=== PATIENT | female | born 1960 | race African-American/Black ===

== ENCOUNTER 2016-09-14 12:39 | Inpatient (IN) | payer MEDICARE, BC ==
--- NOTE | ~2016-09-14 | DS ---
Discharge Summary [facility] [address] [place]. [address] NAME: REJI GÓMEZ : 64 STATUS : ADM IN PAT#: [id number] AGE: 55 ADM/REG DATE : 09/14/16 MR#: [id number] REPORT SERV DATE: 09/26/16 DICTATED BY: WILLIAN CLEMENT DATE: 09/26/16 REPORT STATUS : Draft TRANSCRIBED BY: MODLee DATE: 09/26/16 ADMISSION DATE: 09/14/2016 DISCHARGE DATE: 09/26/2016 PROCEDURES DONE: 1. 09/14/2016 chest x-ray: No radiographic evidence of acute disease. 2. 09/14/2016 x-ray, left foot: Findings surrounding the 1st MTP joint are consistent with ongoing gouty arthritis. 3. 09/16/2015 x-ray, right foot: Lucencies involving the base of the proximal phalanx of the right 1st digit and the distal aspect of the right foot 1st metatarsal suspicious for either osteomyelitis or changes secondary to gout. 4. 09/16/2015 MRI of lower extremity joint: Findings consistent with tophaceous gout. Most severe involvement in the distal 1st digit and along the lateral aspect of the patellar calcaneal articulation. There are multiple soft tissue tophi adjacent to the inflamed joint spaces. At this time, there appears to be sparing of the 2nd through 4th digits in Achilles tendon. 5. 09/18/2015 x-ray, right elbow: The Cam demonstrates no arterial occlusion, significant stenosis up to the right and left lower extremity. 6. 09/17/2016 venous ultrasound, bilateral lower extremity: No DVT in right or left lower extremity. 7. 09/18/2016 x-ray of left foot: Satisfactory postop left foot. 8. 09/21/2016 elbow, right: No evidence of traumatic injury in right elbow or significant degenerative changes. 9. 09/22/2016 chest x-ray: No evidence of acute cardiopulmonary disease. CONSULTS: Dr. Gutierrez for Renal, Dr. Olivier for Infectious Disease and Podiatry. REASON FOR ADMISSION: Pain and swelling of the left great toe. HISTORY OF HOSPITAL STAY: A 55-year-old, black female with past medical history of chronic kidney disease, stage 4; chronic anemia, on treatment trial called vadadustat; gout; psoriasis; presenting with pain and swelling on the left great toe. The patient was admitted for acute exacerbation of gout attack on the left foot. The patient was admitted for further evaluation. The patient underwent procedure on the left great toe to express the tophaceous gout. In addition, the patient also had a questionable osteomyelitis on the left joint requiring an MRI, which shows no osteomyelitis, just the patient's gout. Nonetheless, Infectious Disease was consulted. The patient was started on antibiotics due to the tophaceous gout. There was a question of MRSA infection. The patient was continuing on antibiotics on discharge. The patient will continue doxycycline 100 mg p.o. b.i.d. for 10 days total. Also, from a Renal standpoint, renal function slowly improving. The patient has been changed to prednisone 10 mg p.o. daily as well as Uloric 40 mg p.o. daily. The patient is doing much better with her gout once the Uloric and prednisone have been started. DISPOSITION: The patient is feeling fine. No complaints. ACTIVITIES: As tolerated. Discharge Summary [address] [address] NAME: REJI GÓMEZ : 64 STATUS : ADM IN [facility]#: [id number] AGE: 55 ADM/REG DATE : 09/14/16 MR#: [id number] REPORT SERV DATE: 09/26/16 DICTATED BY: WILLIAN CLEMENT DATE: 09/26/16 REPORT STATUS : Draft TRANSCRIBED BY: LUZ DATE: 09/26/16 DIET: Low-uric acid diet. INSTRUCTIONS UPON DISCHARGE: 1. The patient to follow up with Podiatry within one weeks' time. 2. The patient to follow up with Renal within one to two weeks' time. 3. The patient to follow up with Primary Care within one to two weeks' time. MEDICATION UPON DISCHARGE: 1. Amlodipine 10 mg p.o. daily. 2. Coreg 6.25 mg p.o. daily. 3. Doxycycline 100 mg p.o. daily. 4. Lasix 40 mg p.o. daily. 5. Uloric 40 mg p.o. daily. 6. Lyrica 75 mg p.o. b.i.d. 7. Sodium bicarb 1300 mg p.o. b.i.d. 8. Prednisone 10 mg p.o. daily. 9. Vadadustat 300 mg p.o. daily. DIAGNOSES UPON DISCHARGE: 1. Left great toe pain and swelling secondary to gout. 2. Elbow pain secondary to gout. 3. Chronic kidney disease, stage 4. 4. Hypertension. 5. History of psoriasis. FRANCOISE/LUZ Willian Clement MD / [id number] CC: MD Collette Lilly M.D.
--- NOTE | ~2016-09-14 | CN ---
Consultation Report [facility] [address] [place]. [address] NAME: REJI GÓMEZ : 64 STATUS : ADM IN PAT#: [id number] AGE: 55 ADM/REG DATE : 09/14/16 MR#: [id number] REPORT SERV DATE: 09/16/16 DICTATED BY: NIKKI OLIVIER DATE: 09/16/16 REPORT STATUS : Draft TRANSCRIBED BY: MODL DATE: 09/16/16 DATE OF CONSULTATION: 09/16/2016 REASON FOR CONSULTATION: Possible infection complicating severe gout. HISTORY OF PRESENT ILLNESS: This is a 55-year-old female with a past medical history notable for chronic kidney disease, followed by Dr. Garibay of Nephrology, along with chronic severe gout. The patient tells me that her gout was first diagnosed in 2005 when she had swelling of her knee and was seen by Dr. Sarkar of Rheumatology. She also at one point was followed by Dr. Walton of Rheumatology. Management of her gout has been complicated by her chronic kidney disease. She states that she has had chronic problems of multiple joints through the years. However, a couple of months ago, she developed an open draining wound of her left 1st metatarsophalangeal joint area with yellowish material and bloody material draining from it. The one set has been most severely involved with gout through the years. She also developed some skin problems recently involving her arms and at some point, was referred to Dr. He's office and saw one of his assistance and underwent a biopsy of her right elbow area on 08/19 with pathology showing psoriasiform epidermal hyperplasia. A diagnosis of psoriasis apparently was made. The patient states that the left foot is steadily worsened and she has had some low-grade fevers up to around 100.1. For all these reasons, she was seen in the emergency department on 09/14. She underwent x-rays of both feet along with an MRI scan of the left foot with results as outlined below and she has been evaluated by Dr. Tovar. She was placed on antibiotics with initially one dose of vancomycin with an ongoing therapy with Zosyn. A culture was obtained from drainage from the left great toe and has grown abundant MRSA. Blood cultures are negative. The patient denies previous infections related to her gout. The patient also notes a worsening changes of the skin of her left foot and ankle, much more so than the right foot. She states that she has been using topical Neosporin on both feet for many weeks. PAST MEDICAL HISTORY: In addition to the above is notable for cholecystectomy and C- sections. ALLERGIES: CLIFF INHIBITORS AND METRONIDAZOLE. PRESENT MEDICATIONS: Include Norvasc, Coreg, Zosyn, Lyrica, and prednisone 10 mg daily. She was on prednisone at that dose as an outpatient. SOCIAL HISTORY: The patient lives with her 29-year-old son. She is able to do a little bit of house work but has to rest frequently. Nonsmoker. Occasional alcohol consumption. FAMILY HISTORY: Notable for diabetes in her mother. REVIEW OF SYSTEMS: No nausea, vomiting, diarrhea, chest pain, shortness of breath. PHYSICAL EXAMINATION: Consultation Report [address] [place]. [address] NAME: REJI GÓMEZ : 64 STATUS : ADM IN [facility]#: [id number] AGE: 55 ADM/REG DATE : 09/14/16 MR#: [id number] REPORT SERV DATE: 09/16/16 DICTATED BY: NIKKI OLIVIER DATE: 09/16/16 REPORT STATUS : Draft TRANSCRIBED BY: LUZ DATE: 09/16/16 VITAL SIGNS: The patient weighs 77 kg. She is afebrile. Blood pressure 123/63, pulse 64, respiratory rate 14. GENERAL: She is in no acute distress. HEAD AND NECK: Exam shows a clear oral cavity. Supple neck. LUNGS: Clear to auscultation anteriorly. CARDIAC: Regular rate and rhythm without murmur, gallop, or rub. ABDOMEN: Soft and nontender. EXTREMITIES: The patient has chronic skin changes of gout involving her fingers and knees and big toes including multiple palpable tophi in her fingers. There is a significant swelling of the left knee greater than the right knee with mild associated warmth. The left 1st MPJ has an open wound over it medially with scant amount of drainage and surrounding soft tissue swelling and tenderness and mild warmth. The skin of the dorsum of the left foot and ankle is lichenified with some smaller areas of similar change on the right. Her upper extremities have erythematous papular rash particularly around the elbows. The patient has a peripheral IV without phlebitis. LABORATORY STUDIES: White blood cell count on admission 8.2, today 3.4; hemoglobin 7.7; platelets 82,000, they were 108,000 on admission. Creatinine is 2.71, it was 2.29 on admission and 1.1 back in 2010. Albumin 3.2. Liver function tests normal. Rheumatoid factor negative. SUZE 1:80. Sedimentation rate 108. Uric acid 10.3. MICROBIOLOGY STUDIES: Urinalysis: Trace leukocyte esterase, 2 white blood cells. Wound culture as mentioned. Blood cultures negative to date. IMAGING STUDIES: X-ray of the left foot is reviewed and is interpreted as showing findings consistent with gouty arthritis on the first MTP joint with soft tissue swelling and erosions. MRI of the left foot is interpreted as being consistent with tophaceous gout with most severe involvement being the distal 1st digit. IMPRESSION: It is not clear if the patient has secondary infection involving the severe gouty arthritis of her left 1st MPJ. The culture growing MRSA could just represent colonization of this wound that has developed and not deeper infection. However, she obviously is at risk for secondary infection here. The MRI though is without clear evidence of osteomyelitis. The patient also has recently diagnosed psoriasis. The changes of the skin of her left foot and ankle with lesser changes on the right could at least in part be secondary to a chronic reaction to the Neosporin use. PLAN: I discussed the situation with Dr. Tovar. He planned surgical therapy even if there is no infection here given that the 1st MPJ is really not a functional joint anymore. He plans to resect the distal 1st metatarsal and the proximal 1st phalanx and we will get deep cultures of bone and deeper soft tissue off antibiotics along with pathology specimens from bone to further evaluate for infection. We will therefore stop her antibiotics today with plans to begin vancomycin postoperatively. The patient should avoid Neosporin in the future. Consultation Report [place] [id number] [facility] [place]. [address] NAME: REJI GÓMEZ : 64 STATUS : ADM IN [facility]#: [id number] AGE: 55 ADM/REG DATE : 09/14/16 MR#: [id number] REPORT SERV DATE: 09/16/16 DICTATED BY: NIKKI OLIVIER DATE: 09/16/16 REPORT STATUS : Draft TRANSCRIBED BY: LUZ DATE: 09/16/16 /LUZ Nikki Olivier M.D. / [id number] CC: MD Collette Oconnell M.D. Dennis Bizzoco, D.P.M.
--- NOTE | ~2016-09-14 | CN ---
Consultation Report [facility] [address] [place]. [address] NAME: REJI SANDERS : 64 STATUS : ADM IN PAT#: [id number] AGE: 55 ADM/REG DATE : 09/14/16 MR#: [id number] REPORT SERV DATE: 09/19/16 DICTATED BY: BERNADINE ACE DATE: 09/18/16 REPORT STATUS : Draft TRANSCRIBED BY: MODL DATE: 09/18/16 DATE OF CONSULTATION: 09/18/2016 REQUESTING: Luis Fernando Alberto MD REASON FOR CONSULT: Chronic kidney disease. HPI: Ms. Sanders is a very pleasant 55-year-old female, who was originally met by our group at [facility] in September 2015. At that time, she presented with acute kidney injury and creatinine of 3.2. She has a significant past medical history of nonalcoholic steatohepatitis, hypertension, and severe gout. She has previously been followed quite extensively by Rheumatology for her gout. Unfortunately, records are not available at the time of today's dictation. She underwent renal biopsy at that time for renal insufficiency and microscopic hematuria. The biopsy showed 30-40% interstitial fibrosis and unfortunately was a poor sample with mostly medulla. There were no evidence of crescents or active glomerulonephritis. She was sent home at that time with a creatinine of 2.1. In followup in December of 2015, creatinine was 4.5. She has a left upper arm AV fistula that was placed around that time. She has never been on dialysis. In February 2016, creatinine was 3.8, April 2016 creatinine 3.0, and July 2016 creatinine was 2.4. Most recently, in the office on 08/05/2016, creatinine was 2.0. She was admitted here on 09/14/2016 with severe gout in her left foot. MRI showed tophaceous gout and she is postop day 0 left foot lesion removal. She has been seen by ID for superimposed infection. Ultrasound has shown no DVT and chest x-ray shows no active process. Creatinine today is 2.2. PAST MEDICAL HISTORY: 1. Chronic kidney disease as per HPI. 2. Gout. 3. Hypertension. 4. Nondiagnostic renal biopsy in September 2015. 5. MCCOY. MEDICATIONS: Norvasc 5 mg daily, Coreg, Pepcid, prednisone, Lyrica. FAMILY HISTORY: No ESRD. SOCIAL HISTORY: She is . Disabled, lives in [place]. REVIEW OF SYSTEMS: Please see HPI. PHYSICAL EXAMINATION: VITAL SIGNS: Temperature 97.3, pulse 92, respirations 14, blood pressure 157/77, and 99% saturation on room air. Consultation Report [facility] [address] [place]. [address] NAME: REJI SANDERS : 64 STATUS : ADM IN PAT#: [id number] AGE: 55 ADM/REG DATE : 09/14/16 MR#: [id number] REPORT SERV DATE: 09/19/16 DICTATED BY: BERNADINE ACE DATE: 09/18/16 REPORT STATUS : Draft TRANSCRIBED BY: LUZ DATE: 09/18/16 GENERAL: A pleasant middle-aged female, awake, alert, oriented, cooperative with the exam. She is in no distress. Good historian. HEENT: Sclerae without icterus. Conjunctivae not injected. Oropharynx is clear. No JVD. LUNGS: Bilateral rhonchi without dyspnea. HEART: Regular rate and rhythm. No rub. ABDOMEN: Soft, nontender, nondistended. Bowel sounds present throughout without rebound or guarding. EXTREMITIES: 1+ bilateral lower extremity edema. Left foot heavily bandaged. Clean, dry, and intact. She has bilateral lower extremity rash with previous biopsy consistent with psoriasis. NEURO: Exam is nonfocal. No Salinas catheter is in place. PSYCH: Mood and affect are appropriate. LABORATORY DATA: Sodium 143, potassium 4.4, bicarb 20, BUN 32, creatinine 2.2. Calcium 6.9, uric acid 10.3, albumin 3.1. LFTs normal. Calcium ionized 3.44, GFR 28 mL/minute. Sedimentation rate 111. SUZE positive at 1 to 80 and speckled. White count 4.2000 with 3% eosinophilia, hemoglobin 8.6, platelets 89,000. Urinalysis shows trace blood and 1+ protein with a urine microalbumin creatinine ratio of 94 mcg/mg. ASSESSMENT/PLAN: Ms. Sanders has chronic kidney disease stage 4, anemia, thrombocytopenia, leukopenia, non-anion gap metabolic acidosis, hypocalcemia, hypertension, gout, hypoalbuminemia, psoriasis, and previous nondiagnostic renal biopsy in September 2015. Her other medical history is as outlined above. Her renal function is very stable if not improved from previous according to available records. She has trace blood and 1+ protein on urinalysis. She has a left upper arm fistula in place but has never been on dialysis. The reason for her renal disease is unclear at this time. Apparently, the renal biopsy was nondiagnostic in September 2015. I do not have a copy of the pathology report at the time of today's dictation. The question would be whether or not re-biopsy is indicated at this time. Her elevated sedimentation rate is likely related to her autoimmune processes. We could make an argument that renal function is very stable from previous, and therefore renal biopsy would be high risk with low platelets and low reward. No CLIFF inhibitor or ARB. Protect the left arm. Replace IV calcium and oral bicarb. 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 We will check some serologies and follow closely with you. If renal function were to deteriorate, we would consider inpatient renal biopsy next week versus outpatient followup with Nephrology in the future with Dr. Garibay. BILL/LUZ Bernadine Ace M.D. Consultation Report [address] [address] NAME: REJI SANDERS : 64 STATUS : ADM IN PAT#: [id number] AGE: 55 ADM/REG DATE : 09/14/16 MR#: [id number] REPORT SERV DATE: 09/19/16 DICTATED BY: BERNADINE ACE DATE: 09/18/16 REPORT STATUS : Draft TRANSCRIBED BY: MODL DATE: 09/18/16 / [id number] CC: Franco Garibay M.D.
--- NOTE | ~2016-09-14 | OP ---
Record Of Operation [facility] [address] [place]. [address] NAME: REJI GÓMEZ : 64 STATUS : DIS IN PAT#: [id number] AGE: 55 ADM/REG DATE : 09/14/16 MR#: [id number] REPORT SERV DATE: 10/26/16 DICTATED BY: TEENA GARCIA DATE: 10/23/16 REPORT STATUS : Draft TRANSCRIBED BY: MODLee DATE: 10/23/16 DATE OF PROCEDURE: 09/18/2016 PREOPERATIVE DIAGNOSES: 1. Extensive tophaceous gout, left first metatarsophalangeal joint. 2. Stage 5 ulceration, left first metatarsophalangeal joint. 3. Severe hallux abductovalgus, left first metatarsophalangeal joint. 4. Dislocated left first metatarsophalangeal joint. 5. Cellulitis left first metatarsophalangeal joint and foot. 6. Antalgic gait, inability to wear shoes and walk with comfort. POSTOPERATIVE DIAGNOSES: 1. Extensive tophaceous gout, left first metatarsophalangeal joint. 2. Stage 5 ulceration, left first metatarsophalangeal joint. 3. Severe hallux abductovalgus, left first metatarsophalangeal joint. 4. Dislocated left first metatarsophalangeal joint. 5. Cellulitis left first metatarsophalangeal joint and foot. 6. Antalgic gait, inability to wear shoes and walk with comfort. PROCEDURE PERFORMED: 1. Debulking of gouty tophi, left first metatarsophalangeal joint. 2. Biopsy, first metatarsal head, proximal phalanx. 3. Reduction of the dislocation, left first metatarsophalangeal joint. 4. Reduction of hallux abductovalgus deformity. 5. Decompression of sterile abscess left first metatarsophalangeal joint. 6. Reduction of stage 5 ulceration, left first metatarsophalangeal joint. COMPLICATIONS: None. ESTIMATED BLOOD LOSS: Less than 5 mL. TOURNIQUET TIME: Approximately 2 hours at 250 mmHg. ANESTHESIA: General with a supplementation of local anesthetic at the level of the ankle, 0.5% plain Marcaine, 2% plain Xylocaine in an ankle bracelet fashion, 20 mL total volume. SURGEON: Stuart MejiaPMayur DESCRIPTION OF PROCEDURE: The patient was brought to the operating room on the morning of 09/18/2016 in the satisfactory condition and general anesthesia was initiated. The left ankle was localized as mentioned above. The left foot was prepped and draped in the usual sterile manner. The left foot was exsanguinated of blood and the ankle tourniquet was elevated to 250 mmHg. A dorsomedial incision was made over the left foot from the level of the diaphysis of the first metatarsal to the diaphysis of the proximal phalanx. The incision was deepened to reveal an extensive tophaceous gout in layer after layer. At each layer was approached, the gouty tophi was curetted from the wound Record Of [address] [place]. [address] NAME: REJI GÓMEZ : 64 STATUS : DIS IN PAT#: [id number] AGE: 55 ADM/REG DATE : 09/14/16 MR#: [id number] REPORT SERV DATE: 10/26/16 DICTATED BY: TEENA GARCIA DATE: 10/23/16 REPORT STATUS : Draft TRANSCRIBED BY: MODL DATE: 10/23/16 maintaining the extensively scarred and shredded first metatarsophalangeal joint. The hypertrophy plus ulcerative changes were significant. At each layer, consecutive layer of gouty tophi and sclerotic tissue was defined and then the gouty tophi was eradicated and evacuated the capsule appeared to be completely disrupted at the level of the first metatarsophalangeal joint. The margins were freed up in a semi lenticular fashion on the frontal plane from dorsal to plantar. The patient's periosteum was finally identified and reflected using a [place] elevator. Technique circumferentially at the base of the proximal phalanx and circumferentially at the head of the first metatarsal. The remaining shards of bone in this area intraoperative cultures were obtained as where a collected specimen of bone at this site and sent as per pathology. Using a Jamshidi needle biopsy was obtained from the first metatarsal head and the proximal phalanx and sent out for pathology. The area was flushed with copious amounts of normal saline employing multiple bags x3 3-liter bags of normal saline using pulse lavage. This technique finally eradicate all of the gouty tophi crystals from the catheter site dorsally, medially, plantarly, and laterally of the first metatarsal head and proximal phalanx. Multiple sections of bone were obtained using a [employer] Fan Machine oscillating saw as condylectomies and partial ostectomies were performed at the level of the first metatarsal head. Periarticular surfaces of both the first metatarsal head and proximal phalanx. These were all sent out for pathology. Once all the digitis material was removed, there was an inability to reduce the subluxation dislocation of the first metatarsophalangeal joint laterally using a mixture of [place] elevators and Yepez elevators. Once this was achieved without incident then the patient had the ability to have a complete reduction of the first toe from its severely dorsiflexed, severely valgusly rotated, and severely adducted to the midline of the left foot, and abducted to the midline of the body. Using manual reduction technique and capsulorrhaphy technique, the medial capsule was reapposed after a Fournier feeding tube was applied into the biopsy site in the proximal phalanx to ensure proper drainage. This was passed through the great toe out the lateral side into the first web space. Sutured in place with 4-0 Prolene x2. The joint capsule was reapposed on the frontal plane using 0 Vicryl simple interrupted suture. The linear periosteotomy, capsulotomy was reapposed using 3-0 Vicryl simple continuous suture. Subcutaneous tissue was closed using 2-0 Vicryl sutures and the skin was closed using a combination of horizontal mattress sutures 2-0 and 3 0 Prolene simple interrupted sutures. A Betadine Telfa dry compression dressing was applied to the left foot. The tourniquet was released. The patient tolerated the procedures well and went to the recovery room in a satisfactory condition. DB/MODL Stuart MejiaPMayur / [id number] CC: MD Collette Lilly M.D.
--- NOTE | ~2016-09-14 | HP ---
History And Physical [place] [id number] [facility] [place]. [address] NAME: REJI GÓMEZ : 64 STATUS : ADM IN PAT#: [id number] AGE: 55 ADM/REG DATE : 09/14/16 MR#: [id number] REPORT SERV DATE: 09/14/16 DICTATED BY: PARISA LEHMAN DATE: 09/14/16 REPORT STATUS : Draft TRANSCRIBED BY: MODL DATE: 09/14/16 DATE OF ADMISSION: 09/14/2016 CHIEF COMPLAINT: Pain and swelling in her left great toe. HISTORY OF PRESENT ILLNESS: The patient is a 55-year-old female. She has a past medical history significant for chronic kidney disease and she sees Nephrology associate. She has a history of chronic anemia which she is currently under treatment with study drug called vadadustat. She has a past history of gout. She has a recent diagnosis of psoriasis by her auto parts manager, Dr. He after a biopsy was done. She presents today with a lesion in her left great toe. The patient states that she has had gout in that joint before. She states that she noticed some pain, swelling, and a blister up here. She has not received previous antibiotic therapy for it. She was apparently at Dr. He's office where culture was done and she states they sent her here for evaluation and treatment. She states she has had some subjective fevers at home with chills and had some low-grade fevers documented to low 100s. She also notices over the past several days. She has had itching. She states she started breaking out with a rash on her arms. She wondered if it might be new due to her new study drug for the anemia. Although she has been on that several weeks. She is being evaluated and admitted today for further treatment of her wound. PAST MEDICAL HISTORY: As covered above. PAST SURGICAL HISTORY: She has had x3, cholecystectomy. She has had previous surgery to her toe, and she has had a mole removed. CURRENT MEDICATIONS: Coreg 3.125 b.i.d., prednisone 10, Lyrica 75 b.i.d., vadadustat 300 with lunch. ALLERGIES: CLIFF INHIBITORS AND FLAGYL. FAMILY HISTORY: Father was killed in an MVA. Mother had diabetic coma. SOCIAL HISTORY: She is not a smoker. Social drinker. REVIEW OF SYSTEMS: HEENT: No sore throat. CARDIOVASCULAR: No chest pain or palpitations. PULMONARY: No shortness of breath or cough. GI: No nausea or vomiting. : No dysuria, frequency, urgency. NEUROMUSCULOSKELETAL: She complains of pain in the toe and other changes as noted in the HPI. Otherwise, 14-point review of systems is negative. PHYSICAL EXAMINATION: History And Physical [address] [address] NAME: REJI GÓMEZ : 64 STATUS : ADM IN [facility]#: [id number] AGE: 55 ADM/REG DATE : 09/14/16 MR#: [id number] REPORT SERV DATE: 09/14/16 DICTATED BY: PARISA LHEMAN DATE: 09/14/16 REPORT STATUS : Draft TRANSCRIBED BY: LUZ DATE: 09/14/16 VITAL SIGNS: BP 172/97, repeated here 167/83; pulse 100; temperature 98.1; saturation 92%, respirations 18. GENERAL: She is awake, alert, oriented, in no acute distress. HEENT: Normocephalic, atraumatic. Sclerae nonicteric. NECK: Supple. HEART: Tachycardic and regular. LUNGS: Clear to auscultation. ABDOMEN: Nontender, nondistended. EXTREMITIES: She has chronic skin changes dependent. She states these have been present for some time. The left toe has a desquamated area on the medial portion. She has what looks like a lot of chronic gouty changes to the toe. There is no active drainage out the lesion at present. SKIN: Besides the lower extremity, she has a palpable reddish rash on the forearms. There was just a few small areas scattered isolated lesions on her stomach and back. She states they have been present for the past several days, but worse today. LABORATORY DATA: Sodium 142, potassium 4.9, chloride 110, CO2 of 19, BUN and creatinine 29 and 2.29 with a glucose of 91. White count is 8.2, H and H 8.7 and 27.6, platelets are 108. Wound cultures are pending. Chest x-ray is negative. X-ray of the foot, no foreign body, question gouty arthritis. ASSESSMENT: 55-year-old female with history of renal insufficiency, chronic anemia and gout, presenting with increased pain, swelling and lesion on the great toe. Rule out cellulitis with now associated rash, cause indeterminate. PLAN: 1. The patient has been admitted. 2. IV fluids, bicarb. 3. IV antibiotics. 4. Monitor blood counts. 5. Podiatry consult for the toe. Further recommendations pending records from Dr. He and her PCP. JACOBY/LUZ Parisa Lehman M.D. / [id number] CC: Michael Bird M.D.
[~2016-09-14 12:39] MED LIST: COLCRYS0.6 MG PO; FISH OIL PO; FISH-EPA1000 MG PO; LORTAB 5 PO; MICARDIS H80 MG/25 M PO; MICARDIS HC1 PO; MULTIPLE VIT PO; OMEGA 3550 MG PO; PLAQ200B PO; ULORIC; VITAMIN C500 M3 PO; VITAMIN D PO; [UNRECOGNIZED DRUG - OTHER] PO
[2016-09-14 15:13] LABS: BASOPHILS 0.2 %; BASOPHILS ABSOLUTE 0.02 10/3/uL (0.0-0.16); EOSINOPHILS 2.7 %; EOSINOPHILS ABSOLUTE 0.22 10/3/uL (0.0-0.53); ER CBC TAT 0 Hrs 00 Mins; IMMATURE GRANULOCYTES 0.1 %; IMMATURE GRANULOCYTES ABSOLUTE 0.01 10/3/uL (0.0-0.11); LYMPHOCYTES 9.7 %; LYMPHOCYTES ABSOLUTE 0.79 10/3/uL (0.67-4.30); MEAN CORPUS HGB CONC 31.5 g/dL (32.0-36.0); MEAN CORPUSCULAR HEMOGLOB 32.6 pg (26.0-34.0); MEAN CORPUSCULAR VOLUME 103.4 fL (80-100); MEAN PLATELET VOLUME 11.4 fL (9.2-13.0); MONOCYTES 4.7 %; MONOCYTES ABSOLUTE 0.38 10/3/uL (0.21-1.20); NEUTROPHILS 82.6 %; NEUTROPHILS ABSOLUTE 6.73 10/3/uL (2.02-8.40); RBC DISTRIBUTION WIDTH 16.7 % (12.0-16.0); WHITE BLOOD CELLS 8.2 10/3/uL (4.5-10.5)
[2016-09-14 15:14] LABS: HEMATOCRIT 27.6 % (36.0-48.0); HEMOGLOBIN 8.7 g/dL (12.0-16.0); MANUAL DIFF NO %; PLATELET COUNT 108 10/3/uL (150-400); RED CELL COUNT 2.67 10/6/uL (4.0-5.6)
[2016-09-14 15:26] LABS: A/G RATIO 0.6 (0.7-1.9); ALBUMIN 3.7 G/DL (3.5-5.0); ALKALINE PHOSPHATASE 128 U/L (45-117); BUN (BLOOD UREA NITROGEN) 29 MG/DL (6-23); CALCIUM, SERUM 8.8 MG/DL (8.5-10.4); CHLORIDE, SERUM 110 MMOL/L (96-112); CO2 (CARBON DIOXIDE) 19 MMOL/L (24-34); CREATININE 2.29 MG/DL (0.55-1.02); GFR AFRICAN AMERICAN 27 ML/MIN (>=60); GFR NON AFRICAN AMERICAN 24 ML/MIN (>=60); GLOBULIN 5.7 G/DL (2.5-4.1); GLUCOSE, SERUM 91 MG/DL (60-99); POTASSIUM, SERUM 4.9 MMOL/L (3.5-5.3); SGOT(AST) 32 U/L (5-40); SGPT(ALT) 17 U/L (5-65); SODIUM, SERUM 142 MMOL/L (135-148); TOTAL BILIRUBIN 0.9 MG/DL (0-1.2); TOTAL PROTEIN 9.4 G/DL (6.0-8.5)
[2016-09-14] MEDS ORDERED: P10 PO (17:46)
[2016-09-14] MEDS ORDERED: COREG3 PO (17:46)
[2016-09-14] MEDS ORDERED: LYRICA75 PO (17:47)
[2016-09-14] MEDS ORDERED: VADADUSTAT PO (17:48)
[2016-09-15 07:21] LABS: ASCORBIC ACID (UR NOT ORDER) NEG (NEG); BILIRUBIN, URINE NEGATIVE (NEG); KETONE, URINE NEGATIVE (NEG); LEUKOCYTE ESTERASE(NOT OR TRACE (NEG); WBC (NOT ORDERED) (RFLEX) 2 (0-5)
[2016-09-15 14:59] LABS: RHEUMATOID FACTOR QUANT < 10 IU/ML (0-15)
[2016-09-16 06:31] LABS: BASOPHILS 0.3 %; BASOPHILS ABSOLUTE 0.01 10/3/uL (0.0-0.16); EOSINOPHILS 3.8 %; EOSINOPHILS ABSOLUTE 0.13 10/3/uL (0.0-0.53); HEMATOCRIT 23.4 % (36.0-48.0); HEMOGLOBIN 7.7 g/dL (12.0-16.0); IMMATURE GRANULOCYTES 0.3 %; IMMATURE GRANULOCYTES ABSOLUTE 0.01 10/3/uL (0.0-0.11); LYMPHOCYTES 28.7 %; LYMPHOCYTES ABSOLUTE 0.98 10/3/uL (0.67-4.30); MANUAL DIFF NO %; MEAN CORPUS HGB CONC 32.9 g/dL (32.0-36.0); MEAN CORPUSCULAR HEMOGLOB 33.2 pg (26.0-34.0); MEAN CORPUSCULAR VOLUME 100.9 fL (80-100); MEAN PLATELET VOLUME 10.8 fL (9.2-13.0); MONOCYTES 6.5 %; MONOCYTES ABSOLUTE 0.22 10/3/uL (0.21-1.20); NEUTROPHILS 60.4 %; NEUTROPHILS ABSOLUTE 2.06 10/3/uL (2.02-8.40); PLATELET COUNT 82 10/3/uL (150-400); RBC DISTRIBUTION WIDTH 16.6 % (12.0-16.0); RED CELL COUNT 2.32 10/6/uL (4.0-5.6); WHITE BLOOD CELLS 3.4 10/3/uL (4.5-10.5)
[2016-09-16 06:42] LABS: A/G RATIO 0.7 (0.7-1.9); ALBUMIN 3.2 G/DL (3.5-5.0); CHLORIDE, SERUM 107 MMOL/L (96-112); CREATININE 2.71 MG/DL (0.55-1.02); GFR AFRICAN AMERICAN 22 ML/MIN (>=60); GFR NON AFRICAN AMERICAN 19 ML/MIN (>=60); GLOBULIN 4.8 G/DL (2.5-4.1); GLUCOSE, SERUM 99 MG/DL (60-99); POTASSIUM, SERUM 4.5 MMOL/L (3.5-5.3); SGOT(AST) 19 U/L (5-40); SGPT(ALT) 14 U/L (5-65); SODIUM, SERUM 140 MMOL/L (135-148)
[2016-09-16 06:44] LABS: ALKALINE PHOSPHATASE 83 U/L (45-117); BUN (BLOOD UREA NITROGEN) 35 MG/DL (6-23); CALCIUM, SERUM 7.7 MG/DL (8.5-10.4); CO2 (CARBON DIOXIDE) 23 MMOL/L (24-34); TOTAL BILIRUBIN 0.4 MG/DL (0-1.2)
[2016-09-16 10:57] LABS: 2ND TITER PATTERN HOMOGENEOUS; ANA PATTERN SPECKLED
[2016-09-16 16:57] LABS: INFLUENZA A SCREEN NEGATIVE (NEGATIVE); INFLUENZA B SCREEN NEGATIVE (NEGATIVE)
[2016-09-16 20:48] LABS: CREATININE (RANDOM URINE) 33.7 MG/DL; MICROALBUMIN, RANDOM URINE 3.2 MG/DL
[2016-09-17 05:55] LABS: BASOPHILS 0.3 %; BASOPHILS ABSOLUTE 0.01 10/3/uL (0.0-0.16); EOSINOPHILS 2.4 %; EOSINOPHILS ABSOLUTE 0.09 10/3/uL (0.0-0.53); HEMATOCRIT 21.3 % (36.0-48.0); IMMATURE GRANULOCYTES 0.3 %; IMMATURE GRANULOCYTES ABSOLUTE 0.01 10/3/uL (0.0-0.11); LYMPHOCYTES 29.4 %; LYMPHOCYTES ABSOLUTE 1.09 10/3/uL (0.67-4.30); MEAN CORPUS HGB CONC 32.4 g/dL (32.0-36.0); MEAN CORPUSCULAR HEMOGLOB 33.5 pg (26.0-34.0); MEAN CORPUSCULAR VOLUME 103.4 fL (80-100); MEAN PLATELET VOLUME 11.6 fL (9.2-13.0); MONOCYTES 6.5 %; MONOCYTES ABSOLUTE 0.24 10/3/uL (0.21-1.20); NEUTROPHILS 61.1 %; NEUTROPHILS ABSOLUTE 2.27 10/3/uL (2.02-8.40); PLATELET COUNT 86 10/3/uL (150-400); RED CELL COUNT 2.06 10/6/uL (4.0-5.6); WHITE BLOOD CELLS 3.7 10/3/uL (4.5-10.5)
[2016-09-17 06:03] LABS: HEMOGLOBIN 6.9 g/dL (12.0-16.0); MANUAL DIFF NO %
[2016-09-17 06:17] LABS: A/G RATIO 0.7 (0.7-1.9); BUN (BLOOD UREA NITROGEN) 36 MG/DL (6-23); CALCIUM, SERUM 7.2 MG/DL (8.5-10.4); CHLORIDE, SERUM 110 MMOL/L (96-112); CO2 (CARBON DIOXIDE) 20 MMOL/L (24-34); CREATININE 2.33 MG/DL (0.55-1.02); GFR AFRICAN AMERICAN 27 ML/MIN (>=60); GFR NON AFRICAN AMERICAN 23 ML/MIN (>=60); GLOBULIN 4.5 G/DL (2.5-4.1); GLUCOSE, SERUM 86 MG/DL (60-99); POTASSIUM, SERUM 4.3 MMOL/L (3.5-5.3); SGOT(AST) 20 U/L (5-40); SGPT(ALT) 14 U/L (5-65); SODIUM, SERUM 143 MMOL/L (135-148); TOTAL BILIRUBIN 0.2 MG/DL (0-1.2); TOTAL PROTEIN 7.5 G/DL (6.0-8.5)
[2016-09-17 06:19] LABS: ALKALINE PHOSPHATASE 69 U/L (45-117)
[2016-09-17 13:54] LABS: HEMATOCRIT 28.3 % (36.0-48.0); HEMOGLOBIN 8.6 g/dL (12.0-16.0)
[2016-09-18 05:58] LABS: BASOPHILS 0 %; EOSINOPHILS 3.3 %; EOSINOPHILS ABSOLUTE 0.14 10/3/uL (0.0-0.53); HEMATOCRIT 27.5 % (36.0-48.0); HEMOGLOBIN 8.6 g/dL (12.0-16.0); IMMATURE GRANULOCYTES 0.7 %; IMMATURE GRANULOCYTES ABSOLUTE 0.03 10/3/uL (0.0-0.11); LYMPHOCYTES 28.5 %; LYMPHOCYTES ABSOLUTE 1.21 10/3/uL (0.67-4.30); MEAN CORPUS HGB CONC 31.3 g/dL (32.0-36.0); MEAN CORPUSCULAR HEMOGLOB 31.4 pg (26.0-34.0); MEAN CORPUSCULAR VOLUME 100.4 fL (80-100); MEAN PLATELET VOLUME 11.3 fL (9.2-13.0); MONOCYTES 9.4 %; NEUTROPHILS 58.1 %; NEUTROPHILS ABSOLUTE 2.46 10/3/uL (2.02-8.40); PLATELET COUNT 89 10/3/uL (150-400); RBC DISTRIBUTION WIDTH 19.8 % (12.0-16.0); WHITE BLOOD CELLS 4.2 10/3/uL (4.5-10.5)
[2016-09-18 06:00] LABS: MANUAL DIFF NO %; RED CELL COUNT 2.74 10/6/uL (4.0-5.6)
[2016-09-18 06:24] LABS: A/G RATIO 0.7 (0.7-1.9); ALBUMIN 3.1 G/DL (3.5-5.0); ALKALINE PHOSPHATASE 71 U/L (45-117); CHLORIDE, SERUM 112 MMOL/L (96-112); CO2 (CARBON DIOXIDE) 20 MMOL/L (24-34); CREATININE 2.22 MG/DL (0.55-1.02); GFR AFRICAN AMERICAN 28 ML/MIN (>=60); GFR NON AFRICAN AMERICAN 25 ML/MIN (>=60); GLOBULIN 4.6 G/DL (2.5-4.1); GLUCOSE, SERUM 83 MG/DL (60-99); POTASSIUM, SERUM 4.4 MMOL/L (3.5-5.3); SGOT(AST) 25 U/L (5-40); SGPT(ALT) 16 U/L (5-65); SODIUM, SERUM 143 MMOL/L (135-148); TOTAL BILIRUBIN 0.5 MG/DL (0-1.2); TOTAL PROTEIN 7.7 G/DL (6.0-8.5)
[2016-09-18 06:28] LABS: BUN (BLOOD UREA NITROGEN) 32 MG/DL (6-23)
[2016-09-18 06:29] LABS: CALCIUM, SERUM 6.9 MG/DL (8.5-10.4)
[2016-09-19 08:46] LABS: BASOPHILS 0.2 %; BASOPHILS ABSOLUTE 0.01 10/3/uL (0.0-0.16); EOSINOPHILS 1.9 %; EOSINOPHILS ABSOLUTE 0.11 10/3/uL (0.0-0.53); HEMATOCRIT 28.2 % (36.0-48.0); HEMOGLOBIN 8.8 g/dL (12.0-16.0); IMMATURE GRANULOCYTES 0.7 %; IMMATURE GRANULOCYTES ABSOLUTE 0.04 10/3/uL (0.0-0.11); LYMPHOCYTES 23.1 %; LYMPHOCYTES ABSOLUTE 1.31 10/3/uL (0.67-4.30); MEAN CORPUS HGB CONC 31.2 g/dL (32.0-36.0); MEAN CORPUSCULAR HEMOGLOB 31.7 pg (26.0-34.0); MEAN CORPUSCULAR VOLUME 101.4 fL (80-100); MEAN PLATELET VOLUME 11.7 fL (9.2-13.0); MONOCYTES 10.6 %; NEUTROPHILS 63.5 %; PLATELET COUNT 104 10/3/uL (150-400); RBC DISTRIBUTION WIDTH 19.7 % (12.0-16.0); RED CELL COUNT 2.78 10/6/uL (4.0-5.6); WHITE BLOOD CELLS 5.7 10/3/uL (4.5-10.5)
[2016-09-19 08:47] LABS: MANUAL DIFF NO %
[2016-09-19 08:58] LABS: A/G RATIO 0.7 (0.7-1.9); ALBUMIN 3.4 G/DL (3.5-5.0); ALKALINE PHOSPHATASE 74 U/L (45-117); BUN (BLOOD UREA NITROGEN) 29 MG/DL (6-23); CALCIUM, SERUM 7.5 MG/DL (8.5-10.4); CHLORIDE, SERUM 108 MMOL/L (96-112); CO2 (CARBON DIOXIDE) 21 MMOL/L (24-34); CREATININE 2.43 MG/DL (0.55-1.02); GFR AFRICAN AMERICAN 25 ML/MIN (>=60); GFR NON AFRICAN AMERICAN 22 ML/MIN (>=60); GLUCOSE, SERUM 96 MG/DL (60-99); POTASSIUM, SERUM 4.3 MMOL/L (3.5-5.3); SGOT(AST) 24 U/L (5-40); SGPT(ALT) 16 U/L (5-65); SODIUM, SERUM 142 MMOL/L (135-148); TOTAL BILIRUBIN 0.2 MG/DL (0-1.2); TOTAL PROTEIN 8.4 G/DL (6.0-8.5)
[2016-09-20 06:30] LABS: BASOPHILS 0.4 %; BASOPHILS ABSOLUTE 0.02 10/3/uL (0.0-0.16); EOSINOPHILS 1.7 %; EOSINOPHILS ABSOLUTE 0.09 10/3/uL (0.0-0.53); HEMATOCRIT 25.4 % (36.0-48.0); HEMOGLOBIN 8.1 g/dL (12.0-16.0); IMMATURE GRANULOCYTES 0.8 %; IMMATURE GRANULOCYTES ABSOLUTE 0.04 10/3/uL (0.0-0.11); LYMPHOCYTES ABSOLUTE 1.05 10/3/uL (0.67-4.30); MEAN CORPUS HGB CONC 31.9 g/dL (32.0-36.0); MEAN CORPUSCULAR VOLUME 100.4 fL (80-100); MEAN PLATELET VOLUME 12.1 fL (9.2-13.0); MONOCYTES ABSOLUTE 0.68 10/3/uL (0.21-1.20); NEUTROPHILS 64.1 %; NEUTROPHILS ABSOLUTE 3.36 10/3/uL (2.02-8.40); PLATELET COUNT 89 10/3/uL (150-400); RBC DISTRIBUTION WIDTH 18.9 % (12.0-16.0); RED CELL COUNT 2.53 10/6/uL (4.0-5.6); WHITE BLOOD CELLS 5.2 10/3/uL (4.5-10.5)
[2016-09-20 06:32] LABS: MANUAL DIFF NO %
[2016-09-20 06:46] LABS: A/G RATIO 0.6 (0.7-1.9); ALBUMIN 2.9 G/DL (3.5-5.0); ALKALINE PHOSPHATASE 65 U/L (45-117); BUN (BLOOD UREA NITROGEN) 30 MG/DL (6-23); CALCIUM, SERUM 7.1 MG/DL (8.5-10.4); CHLORIDE, SERUM 111 MMOL/L (96-112); CO2 (CARBON DIOXIDE) 20 MMOL/L (24-34); GFR AFRICAN AMERICAN 27 ML/MIN (>=60); GFR NON AFRICAN AMERICAN 23 ML/MIN (>=60); GLOBULIN 4.6 G/DL (2.5-4.1); GLUCOSE, SERUM 97 MG/DL (60-99); PHOSPHORUS, SERUM 3.2 MG/DL (2.5-4.5); POTASSIUM, SERUM 4.4 MMOL/L (3.5-5.3); SGOT(AST) 16 U/L (5-40); SGPT(ALT) 10 U/L (5-65); SODIUM, SERUM 142 MMOL/L (135-148); TOTAL BILIRUBIN 0.3 MG/DL (0-1.2); TOTAL PROTEIN 7.5 G/DL (6.0-8.5)
[2016-09-21 06:21] LABS: BASOPHILS 0.2 %; BASOPHILS ABSOLUTE 0.01 10/3/uL (0.0-0.16); EOSINOPHILS ABSOLUTE 0.11 10/3/uL (0.0-0.53); HEMATOCRIT 24.2 % (36.0-48.0); HEMOGLOBIN 7.7 g/dL (12.0-16.0); IMMATURE GRANULOCYTES 1.1 %; IMMATURE GRANULOCYTES ABSOLUTE 0.06 10/3/uL (0.0-0.11); LYMPHOCYTES 20.4 %; LYMPHOCYTES ABSOLUTE 1.12 10/3/uL (0.67-4.30); MEAN CORPUS HGB CONC 31.8 g/dL (32.0-36.0); MEAN CORPUSCULAR HEMOGLOB 31.7 pg (26.0-34.0); MEAN CORPUSCULAR VOLUME 99.6 fL (80-100); MEAN PLATELET VOLUME 12.2 fL (9.2-13.0); MONOCYTES 13.3 %; MONOCYTES ABSOLUTE 0.73 10/3/uL (0.21-1.20); NEUTROPHILS ABSOLUTE 3.47 10/3/uL (2.02-8.40); PLATELET COUNT 91 10/3/uL (150-400); RBC DISTRIBUTION WIDTH 18.5 % (12.0-16.0); RED CELL COUNT 2.43 10/6/uL (4.0-5.6); WHITE BLOOD CELLS 5.5 10/3/uL (4.5-10.5)
[2016-09-21 06:29] LABS: MANUAL DIFF NO %
[2016-09-21 06:30] LABS: A/G RATIO 0.6 (0.7-1.9); ALBUMIN 2.9 G/DL (3.5-5.0); ALKALINE PHOSPHATASE 64 U/L (45-117); BUN (BLOOD UREA NITROGEN) 34 MG/DL (6-23); CALCIUM, SERUM 7.2 MG/DL (8.5-10.4); CHLORIDE, SERUM 110 MMOL/L (96-112); CO2 (CARBON DIOXIDE) 21 MMOL/L (24-34); CREATININE 2.37 MG/DL (0.55-1.02); GFR AFRICAN AMERICAN 26 ML/MIN (>=60); GFR NON AFRICAN AMERICAN 23 ML/MIN (>=60); GLOBULIN 4.5 G/DL (2.5-4.1); GLUCOSE, SERUM 102 MG/DL (60-99); POTASSIUM, SERUM 4.3 MMOL/L (3.5-5.3); SGOT(AST) 16 U/L (5-40); SGPT(ALT) 12 U/L (5-65); SODIUM, SERUM 142 MMOL/L (135-148); TOTAL BILIRUBIN 0.3 MG/DL (0-1.2); TOTAL PROTEIN 7.4 G/DL (6.0-8.5)
[2016-09-21 14:08] LABS: GLOMERULAR BASEMENT MEMBRANE <0.2 AI (<1.0)
[2016-09-21 22:33] LABS: ANCA <1:20 (()); MYELOPEROXIDASE ANTIBODY <0.2 AI (<1.0); PROTEINASE 3 ANTIBODY <0.2 AI (<1.0)
[2016-09-22 06:16] LABS: BASOPHILS 0.1 %; BASOPHILS ABSOLUTE 0.01 10/3/uL (0.0-0.16); HEMATOCRIT 24.8 % (36.0-48.0); HEMOGLOBIN 7.9 g/dL (12.0-16.0); IMMATURE GRANULOCYTES 0.7 %; IMMATURE GRANULOCYTES ABSOLUTE 0.05 10/3/uL (0.0-0.11); LYMPHOCYTES 20.6 %; LYMPHOCYTES ABSOLUTE 1.55 10/3/uL (0.67-4.30); MEAN CORPUS HGB CONC 31.9 g/dL (32.0-36.0); MEAN CORPUSCULAR HEMOGLOB 31.5 pg (26.0-34.0); MEAN CORPUSCULAR VOLUME 98.8 fL (80-100); MEAN PLATELET VOLUME 12.2 fL (9.2-13.0); MONOCYTES 15.4 %; MONOCYTES ABSOLUTE 1.16 10/3/uL (0.21-1.20); NEUTROPHILS 59.2 %; NEUTROPHILS ABSOLUTE 4.45 10/3/uL (2.02-8.40); PLATELET COUNT 102 10/3/uL (150-400); RBC DISTRIBUTION WIDTH 18.4 % (12.0-16.0); RED CELL COUNT 2.51 10/6/uL (4.0-5.6); WHITE BLOOD CELLS 7.5 10/3/uL (4.5-10.5)
[2016-09-22 06:18] LABS: MANUAL DIFF NO %
[2016-09-22 06:34] LABS: BUN (BLOOD UREA NITROGEN) 36 MG/DL (6-23); CALCIUM, SERUM 7.5 MG/DL (8.5-10.4); CHLORIDE, SERUM 109 MMOL/L (96-112); CO2 (CARBON DIOXIDE) 21 MMOL/L (24-34); CREATININE 2.47 MG/DL (0.55-1.02); GFR AFRICAN AMERICAN 25 ML/MIN (>=60); GFR NON AFRICAN AMERICAN 22 ML/MIN (>=60); GLUCOSE, SERUM 91 MG/DL (60-99); PHOSPHORUS, SERUM 2.5 MG/DL (2.5-4.5); POTASSIUM, SERUM 5.1 MMOL/L (3.5-5.3); SODIUM, SERUM 140 MMOL/L (135-148)
[2016-09-23 06:32] LABS: BASOPHILS 0.1 %; BASOPHILS ABSOLUTE 0.01 10/3/uL (0.0-0.16); EOSINOPHILS 0 %; HEMATOCRIT 25.6 % (36.0-48.0); HEMOGLOBIN 8.1 g/dL (12.0-16.0); IMMATURE GRANULOCYTES 0.2 %; IMMATURE GRANULOCYTES ABSOLUTE 0.02 10/3/uL (0.0-0.11); LYMPHOCYTES 9.6 %; LYMPHOCYTES ABSOLUTE 0.77 10/3/uL (0.67-4.30); MEAN CORPUS HGB CONC 31.6 g/dL (32.0-36.0); MEAN CORPUSCULAR HEMOGLOB 31.4 pg (26.0-34.0); MEAN CORPUSCULAR VOLUME 99.2 fL (80-100); MEAN PLATELET VOLUME 12.5 fL (9.2-13.0); MONOCYTES 9.2 %; MONOCYTES ABSOLUTE 0.74 10/3/uL (0.21-1.20); NEUTROPHILS 80.9 %; NEUTROPHILS ABSOLUTE 6.49 10/3/uL (2.02-8.40); PLATELET COUNT 123 10/3/uL (150-400); RBC DISTRIBUTION WIDTH 17.6 % (12.0-16.0); RED CELL COUNT 2.58 10/6/uL (4.0-5.6)
[2016-09-23 06:33] LABS: MANUAL DIFF NO %
[2016-09-23 06:46] LABS: CALCIUM, SERUM 7.2 MG/DL (8.5-10.4); CHLORIDE, SERUM 105 MMOL/L (96-112); CO2 (CARBON DIOXIDE) 21 MMOL/L (24-34); CREATININE 2.83 MG/DL (0.55-1.02); GFR AFRICAN AMERICAN 21 ML/MIN (>=60); GFR NON AFRICAN AMERICAN 18 ML/MIN (>=60); POTASSIUM, SERUM 5.6 MMOL/L (3.5-5.3); SODIUM, SERUM 138 MMOL/L (135-148)
[2016-09-23 06:49] LABS: BUN (BLOOD UREA NITROGEN) 44 MG/DL (6-23); GLUCOSE, SERUM 127 MG/DL (60-99)
[2016-09-24 06:46] LABS: BASOPHILS 0.1 %; BASOPHILS ABSOLUTE 0.01 10/3/uL (0.0-0.16); EOSINOPHILS 0.1 %; EOSINOPHILS ABSOLUTE 0.01 10/3/uL (0.0-0.53); HEMATOCRIT 25.7 % (36.0-48.0); HEMOGLOBIN 8.2 g/dL (12.0-16.0); IMMATURE GRANULOCYTES 1.1 %; IMMATURE GRANULOCYTES ABSOLUTE 0.11 10/3/uL (0.0-0.11); LYMPHOCYTES 9.7 %; LYMPHOCYTES ABSOLUTE 0.99 10/3/uL (0.67-4.30); MEAN CORPUS HGB CONC 31.9 g/dL (32.0-36.0); MEAN CORPUSCULAR HEMOGLOB 31.2 pg (26.0-34.0); MEAN CORPUSCULAR VOLUME 97.7 fL (80-100); MEAN PLATELET VOLUME 12.2 fL (9.2-13.0); MONOCYTES 10.4 %; MONOCYTES ABSOLUTE 1.06 10/3/uL (0.21-1.20); NEUTROPHILS 78.6 %; NEUTROPHILS ABSOLUTE 8.03 10/3/uL (2.02-8.40); PLATELET COUNT 142 10/3/uL (150-400); RBC DISTRIBUTION WIDTH 17.6 % (12.0-16.0); RED CELL COUNT 2.63 10/6/uL (4.0-5.6); WHITE BLOOD CELLS 10.2 10/3/uL (4.5-10.5)
[2016-09-24 06:47] LABS: MANUAL DIFF NO %
[2016-09-24 07:01] LABS: ALBUMIN 3.1 G/DL (3.5-5.0); CALCIUM, SERUM 7.3 MG/DL (8.5-10.4); CHLORIDE, SERUM 98 MMOL/L (96-112); CO2 (CARBON DIOXIDE) 20 MMOL/L (24-34); CREATININE 2.81 MG/DL (0.55-1.02); GFR AFRICAN AMERICAN 21 ML/MIN (>=60); GFR NON AFRICAN AMERICAN 18 ML/MIN (>=60); GLUCOSE, SERUM 103 MG/DL (60-99); PHOSPHORUS, SERUM 4.4 MG/DL (2.5-4.5); SODIUM, SERUM 135 MMOL/L (135-148)
[2016-09-24 07:02] LABS: BUN (BLOOD UREA NITROGEN) 54 MG/DL (6-23)
[2016-09-25 06:59] LABS: BASOPHILS 0.1 %; BASOPHILS ABSOLUTE 0.01 10/3/uL (0.0-0.16); EOSINOPHILS 0.1 %; EOSINOPHILS ABSOLUTE 0.01 10/3/uL (0.0-0.53); HEMATOCRIT 25.5 % (36.0-48.0); HEMOGLOBIN 8.2 g/dL (12.0-16.0); IMMATURE GRANULOCYTES 1.4 %; IMMATURE GRANULOCYTES ABSOLUTE 0.13 10/3/uL (0.0-0.11); LYMPHOCYTES 13.9 %; LYMPHOCYTES ABSOLUTE 1.29 10/3/uL (0.67-4.30); MEAN CORPUS HGB CONC 32.2 g/dL (32.0-36.0); MEAN CORPUSCULAR HEMOGLOB 30.9 pg (26.0-34.0); MEAN CORPUSCULAR VOLUME 96.2 fL (80-100); MEAN PLATELET VOLUME 12.5 fL (9.2-13.0); MONOCYTES 10.4 %; MONOCYTES ABSOLUTE 0.97 10/3/uL (0.21-1.20); NEUTROPHILS 74.1 %; NEUTROPHILS ABSOLUTE 6.89 10/3/uL (2.02-8.40); PLATELET COUNT 159 10/3/uL (150-400); RBC DISTRIBUTION WIDTH 17.5 % (12.0-16.0); RED CELL COUNT 2.65 10/6/uL (4.0-5.6); WHITE BLOOD CELLS 9.3 10/3/uL (4.5-10.5)
[2016-09-25 07:01] LABS: MANUAL DIFF NO %
[2016-09-25 07:09] LABS: ALBUMIN 2.9 G/DL (3.5-5.0); CALCIUM, SERUM 7.5 MG/DL (8.5-10.4); CHLORIDE, SERUM 99 MMOL/L (96-112); CREATININE 2.96 MG/DL (0.55-1.02); GFR AFRICAN AMERICAN 20 ML/MIN (>=60); GFR NON AFRICAN AMERICAN 17 ML/MIN (>=60); GLUCOSE, SERUM 97 MG/DL (60-99); POTASSIUM, SERUM 4.8 MMOL/L (3.5-5.3); SGOT(AST) 26 U/L (5-40); SGPT(ALT) 30 U/L (5-65); SODIUM, SERUM 135 MMOL/L (135-148); TOTAL BILIRUBIN 0.3 MG/DL (0-1.2); TOTAL PROTEIN 8.4 G/DL (6.0-8.5)
[2016-09-25 07:10] LABS: A/G RATIO 0.5 (0.7-1.9); ALKALINE PHOSPHATASE 119 U/L (45-117); BUN (BLOOD UREA NITROGEN) 59 MG/DL (6-23); CO2 (CARBON DIOXIDE) 25 MMOL/L (24-34); GLOBULIN 5.5 G/DL (2.5-4.1)
[2016-09-26 05:36] LABS: BASOPHILS 0.1 %; BASOPHILS ABSOLUTE 0.01 10/3/uL (0.0-0.16); EOSINOPHILS 0.1 %; EOSINOPHILS ABSOLUTE 0.01 10/3/uL (0.0-0.53); HEMATOCRIT 24.1 % (36.0-48.0); HEMOGLOBIN 7.8 g/dL (12.0-16.0); IMMATURE GRANULOCYTES 2.8 %; IMMATURE GRANULOCYTES ABSOLUTE 0.25 10/3/uL (0.0-0.11); LYMPHOCYTES 16.2 %; LYMPHOCYTES ABSOLUTE 1.45 10/3/uL (0.67-4.30); MANUAL DIFF NO %; MEAN CORPUS HGB CONC 32.4 g/dL (32.0-36.0); MEAN CORPUSCULAR HEMOGLOB 31.3 pg (26.0-34.0); MEAN CORPUSCULAR VOLUME 96.8 fL (80-100); MEAN PLATELET VOLUME 12.2 fL (9.2-13.0); MONOCYTES 9.6 %; MONOCYTES ABSOLUTE 0.86 10/3/uL (0.21-1.20); NEUTROPHILS 71.2 %; NEUTROPHILS ABSOLUTE 6.38 10/3/uL (2.02-8.40); PLATELET COUNT 160 10/3/uL (150-400); RBC DISTRIBUTION WIDTH 17.4 % (12.0-16.0); RED CELL COUNT 2.49 10/6/uL (4.0-5.6)
[2016-09-26 05:56] LABS: ALBUMIN 2.9 G/DL (3.5-5.0); BUN (BLOOD UREA NITROGEN) 60 MG/DL (6-23); CALCIUM, SERUM 7.8 MG/DL (8.5-10.4); CHLORIDE, SERUM 101 MMOL/L (96-112); CO2 (CARBON DIOXIDE) 24 MMOL/L (24-34); CREATININE 2.69 MG/DL (0.55-1.02); GFR AFRICAN AMERICAN 23 ML/MIN (>=60); GFR NON AFRICAN AMERICAN 19 ML/MIN (>=60); POTASSIUM, SERUM 4.4 MMOL/L (3.5-5.3); SODIUM, SERUM 136 MMOL/L (135-148)
[2016-09-26 05:59] LABS: GLUCOSE, SERUM 77 MG/DL (60-99)
[2016-09-26] MEDS ORDERED: NORV10 PO (17:55)
[2016-09-26] MEDS ORDERED: IVVIBRA PO (17:55)
[2016-09-26] MEDS ORDERED: L40 PO (17:56)
[2016-09-26] MEDS ORDERED: ULORIC40 MG PO (17:56)
[2016-09-26] MEDS ORDERED: SODBICAR10 PO (17:57)
[2017-03-02] MEDS ORDERED: VIST25 PO (22:11)
[2017-03-05] MEDS ORDERED: PROTONIX PO (10:28)
[2017-03-05] MEDS ORDERED: SUCR PO (10:29)
[2017-03-05] MEDS ORDERED: COREG12 PO (10:30)
[2017-03-05] MEDS ORDERED: ULORIC40 MG PO (10:31)
== END 2016-09-26 19:06 | disposition home health service (06) | DRG 478 ==
LOC: ER 12:39 → 4SO 17:35 → 7NO 19:06
PROVIDERS: Emergency Medicine; Hospitalist; Internal Medicine; Internal Medicine Infectious Disease; Internal Medicine Nephrology; Registered Nurse
PROC: 30233N1 Transfusion of Nonautologous Red Blood Cells into Peripheral Vein, Percutaneous Approach (ICD-10-PCS; 2016-09-18)
PROC: 0QBR0ZX Excision of Left Toe Phalanx, Open Approach, Diagnostic (ICD-10-PCS; principal; 2016-09-18 08:45)
DX: M1A.9XX0 Chronic gout, unspecified, without tophus (tophi) (principal); N18.4 Chronic kidney disease, stage 4 (severe); D69.6 Thrombocytopenia, unspecified; M86.9 Osteomyelitis, unspecified; E83.51 Hypocalcemia; K75.81 Nonalcoholic steatohepatitis (NASH); M10.9 Gout, unspecified; M79.675 Pain in left toe(s); D63.1 Anemia in chronic kidney disease; L03.032 Cellulitis of left toe; L40.9 Psoriasis, unspecified; I12.9 Hypertensive chronic kidney disease with stage 1 through stage 4 chronic kidney disease, or unspecified chronic kidney disease; M25.522 Pain in left elbow; E78.5 Hyperlipidemia, unspecified
CPT/HCPCS: 36415; 71010; 73080-RT; 73620-LT; 73620-RT; 73721-LT; 80053; 80069; 80202; 81001; 82043; 82272; 82330; 82784; 83516; 83516-59; 83605; 83735; 84100; 84145; 84156; 84550; 85014; 85018; 85025; 85652; 86039; 86255; 86256; 86431; 86850; 86900; 86901; 86920; 87040; 87070; 87075; 87077; 87186; 87205; 87804; 88305; 88307; 88311; 93005; 93923; 93925; 93970; 96374; 99284; A9270-GY; J0610; J1170; J1200; J2250; J2405; J2543; J3010; J3370; P9016

== ENCOUNTER 2016-09-27 20:06 | Emergency (ER) | payer BC ==
[~2016-09-27 20:06] MED LIST changes: +COREG3 PO; +IVVIBRA PO; +L40 PO; +LYRICA75 PO; +NORV10 PO; +P10 PO; +SODBICAR10 PO; +ULORIC40 MG PO; +VADADUSTAT PO
[2016-09-27 23:46] LABS: BASOPHILS 0.2 %; BASOPHILS ABSOLUTE 0.04 10/3/uL (0.0-0.16); EOSINOPHILS 0.7 %; EOSINOPHILS ABSOLUTE 0.11 10/3/uL (0.0-0.53); IMMATURE GRANULOCYTES 1.8 %; IMMATURE GRANULOCYTES ABSOLUTE 0.29 10/3/uL (0.0-0.11); LYMPHOCYTES 9.7 %; LYMPHOCYTES ABSOLUTE 1.59 10/3/uL (0.67-4.30); MEAN CORPUS HGB CONC 32.7 g/dL (32.0-36.0); MEAN CORPUSCULAR HEMOGLOB 31.2 pg (26.0-34.0); MEAN CORPUSCULAR VOLUME 95.5 fL (80-100); MONOCYTES 8.2 %; MONOCYTES ABSOLUTE 1.34 10/3/uL (0.21-1.20); NEUTROPHILS 79.4 %; NEUTROPHILS ABSOLUTE 12.94 10/3/uL (2.02-8.40); PLATELET COUNT 174 10/3/uL (150-400); RBC DISTRIBUTION WIDTH 18.7 % (12.0-16.0)
[2016-09-27 23:48] LABS: ER CBC TAT 0 Hrs 09 Mins; HEMOGLOBIN 9.8 g/dL (12.0-16.0); MANUAL DIFF NO %; RED CELL COUNT 3.14 10/6/uL (4.0-5.6); WHITE BLOOD CELLS 16.3 10/3/uL (4.5-10.5)
[2016-09-27 23:53] LABS: INTERNATIONAL NORMAL RATI 1.1 UNITS (-); PROTIME (NOT ORD) 14.1 SEC (12.0-14.5)
[2016-09-27 23:54] LABS: PARTIAL THROMBO TIME 30.1 SEC (22.5-37.2)
[2016-09-28 00:30] LABS: ANISOCYTOSIS 1+ (5-10/OIF) (0-5/OIF); ER DIFF TAT 0 Hrs 51 Mins; IMMATURE GRANS ABSOLUTE (CALC) 0.33 10/3/uL (0.0-0.11); LYMPHOCYTES 10 %; LYMPHOCYTES ABSOLUTE (CALC) 1.63 10/3/uL (0.67-4.30); MONOCYTES 8 %; MYELOCYTES 2 %; NEUTROPHILS ABSOLUTE (CALC) 13.04 10/3/uL (2.02-8.40); PLATELET ESTIMATE ADQ (ADEQUATE); RBC MORPHOLOGY ABN (NORMAL); SEGMENTED NEUTROPHIL (0) 80 %; TOTAL NUCLEATED CELLS 100
[2016-09-28 00:39] LABS: ASCORBIC ACID (UR NOT ORDER) NEG (NEG); BILIRUBIN, URINE NEGATIVE (NEG); ER URINALYSIS TAT 0 Hrs 00 Mins; KETONE, URINE NEGATIVE (NEG); LEUKOCYTE ESTERASE(NOT OR NEG (NEG); NITRITE (URINE) NEG (NEG); WBC (NOT ORDERED) (RFLEX) < 1 (0-5)
[2016-09-28 02:14] LABS: CHEST PAIN PROFILE TAT 0 Hrs 21 Mins; SODIUM, SERUM 138 MMOL/L (135-148); TROPONIN I <0.02 NG/ML (<0.05)
[2016-09-28 02:16] LABS: POTASSIUM, SERUM 5.6 MMOL/L (3.5-5.3)
[2016-09-28 02:29] LABS: ALBUMIN 3.4 G/DL (3.5-5.0); DIRECT BILIRUBIN 0.2 MG/DL (0.0-0.4); INDIRECT BILIRUBIN(NOT ORDER) 0.4 MG/DL (0.1-0.9); SGOT(AST) 36 U/L (5-40); SGPT(ALT) 35 U/L (5-65); TOTAL BILIRUBIN 0.6 MG/DL (0-1.2); TOTAL PROTEIN 9.3 G/DL (6.0-8.5)
[2016-09-28 02:30] LABS: ALKALINE PHOSPHATASE 145 U/L (45-117)
[2016-09-28 04:12] LABS: CHLORIDE, SERUM 99 MMOL/L (96-112); CO2 (CARBON DIOXIDE) 27 MMOL/L (24-34); CREATININE 2.76 MG/DL (0.55-1.02); GFR AFRICAN AMERICAN 22 ML/MIN (>=60); GFR NON AFRICAN AMERICAN 19 ML/MIN (>=60); GLUCOSE, SERUM 81 MG/DL (60-99)
[2016-09-28 04:14] LABS: CALCIUM, SERUM 9.4 MG/DL (8.5-10.4)
[2016-09-28 04:28] LABS: BUN (BLOOD UREA NITROGEN) 52 MG/DL (6-23)
[2017-03-02] MEDS ORDERED: VIST25 PO (22:11)
[2017-03-05] MEDS ORDERED: PROTONIX PO (10:28)
[2017-03-05] MEDS ORDERED: SUCR PO (10:29)
[2017-03-05] MEDS ORDERED: COREG12 PO (10:30)
[2017-03-05] MEDS ORDERED: ULORIC40 MG PO (10:31)
== END 2016-09-28 06:05 | disposition home or self-care (01) ==
LOC: ER 20:06
PROVIDERS: Emergency Medicine; Specialist
DX: R10.9 Unspecified abdominal pain (principal); I12.9 Hypertensive chronic kidney disease with stage 1 through stage 4 chronic kidney disease, or unspecified chronic kidney disease; N18.9 Chronic kidney disease, unspecified; E83.52 Hypercalcemia; D72.829 Elevated white blood cell count, unspecified; D64.9 Anemia, unspecified; L40.9 Psoriasis, unspecified; Z90.710 Acquired absence of both cervix and uterus; Z88.8 Allergy status to other drugs, medicaments and biological substances; Z79.52 Long term (current) use of systemic steroids; Z79.899 Other long term (current) drug therapy
CPT/HCPCS: 71020; 74176; 80048; 80076; 81001; 83690; 83735; 83880; 84484; 85025; 85610; 85730; 93005; 96374; 96375; 96376; 99285; A9270-GY; J1170; J2405; J3010

== ENCOUNTER 2016-11-18 10:36 | Emergency (ER) | payer BC, MEDICARE ==
[2016-11-18 10:30] LABS: BASOPHILS 0.5 %; BASOPHILS ABSOLUTE 0.04 10/3/uL (0.0-0.16); EOSINOPHILS 1.4 %; HEMATOCRIT 25.8 % (36.0-48.0); HEMOGLOBIN 8.5 g/dL (12.0-16.0); IMMATURE GRANULOCYTES 0.4 %; IMMATURE GRANULOCYTES ABSOLUTE 0.03 10/3/uL (0.0-0.11); LYMPHOCYTES 24.6 %; MANUAL DIFF NO %; MEAN CORPUS HGB CONC 32.9 g/dL (32.0-36.0); MEAN CORPUSCULAR HEMOGLOB 31.6 pg (26.0-34.0); MEAN CORPUSCULAR VOLUME 95.9 fL (80-100); MONOCYTES 4.2 %; MONOCYTES ABSOLUTE 0.31 10/3/uL (0.21-1.20); NEUTROPHILS 68.9 %; NEUTROPHILS ABSOLUTE 5.04 10/3/uL (2.02-8.40); PLATELET COUNT 157 10/3/uL (150-400); RBC DISTRIBUTION WIDTH 21.9 % (12.0-16.0); RED CELL COUNT 2.69 10/6/uL (4.0-5.6); WHITE BLOOD CELLS 7.3 10/3/uL (4.5-10.5)
[2016-11-18 12:07] LABS: BUN (BLOOD UREA NITROGEN) 27 MG/DL (6-23); CALCIUM, SERUM 8.8 MG/DL (8.5-10.4); CHLORIDE, SERUM 114 MMOL/L (96-112); CO2 (CARBON DIOXIDE) 16 MMOL/L (24-34); POTASSIUM, SERUM 4.4 MMOL/L (3.5-5.3); SODIUM, SERUM 145 MMOL/L (135-148)
[2016-11-18 12:10] LABS: CREATININE 2.23 MG/DL (0.55-1.02); GFR AFRICAN AMERICAN 28 ML/MIN (>=60); GFR NON AFRICAN AMERICAN 24 ML/MIN (>=60); GLUCOSE, SERUM 71 MG/DL (60-99)
[2016-11-18 12:45] LABS: ALLENS TEST Pos; CARBOXYHEMOGLOBIN 1.5 % (0-3); HCO3 (ACTUAL BICARBONATE) 14.3 MEQ/L (23-27); HEMOBLOGIN CONTENT 8.3 G/DL (12-16); INSTRUMENT SERIAL # 8087; METHEMOGLOBIN 0.6 % (0-3); O2 CONTENT 10.8 VOL% (18-24); PCO2 (CO2 TENSION) 30 MMHG (35-45); PO2 (O2 TENSION) 82 MMHG (79-93); SAMPLE Arterial
[2017-03-02] MEDS ORDERED: VIST25 PO (22:11)
[2017-03-05] MEDS ORDERED: PROTONIX PO (10:28)
[2017-03-05] MEDS ORDERED: SUCR PO (10:29)
[2017-03-05] MEDS ORDERED: COREG12 PO (10:30)
[2017-03-05] MEDS ORDERED: ULORIC40 MG PO (10:31)
== END 2016-11-18 14:11 | disposition home or self-care (01) ==
LOC: ER 10:36
PROVIDERS: Nurse Practitioner
DX: L29.9 Pruritus, unspecified (principal); I12.9 Hypertensive chronic kidney disease with stage 1 through stage 4 chronic kidney disease, or unspecified chronic kidney disease; N18.9 Chronic kidney disease, unspecified; D64.9 Anemia, unspecified; Z90.49 Acquired absence of other specified parts of digestive tract; Z88.8 Allergy status to other drugs, medicaments and biological substances; Z79.52 Long term (current) use of systemic steroids; Z79.899 Other long term (current) drug therapy
CPT/HCPCS: 36600; 80048; 82805; 85025; 96374; 96375; 99284; A9270-GY; J1170; J1200